=== PATIENT | female | born 1955 | race Caucasian/White ===

== ENCOUNTER → 2017-03-19 | Outpatient (CLI) | payer BC ==
[~2017-03-19] MED LIST: CEFTIN500 MG PO; MACROBID 1100 MG/CAP PO
== END ==
LOC: COL.RAD 07:19
DX: R31.1 Benign essential microscopic hematuria (principal)
CPT/HCPCS: Q9967

== ENCOUNTER → 2018-09-29 | Outpatient (CLI) | payer BC | LOC: MC.RAD 16:18 | DX: Z12.31 Encounter for screening mammogram for malignant neoplasm of breast (principal); E66.9 Obesity, unspecified ==